=== PATIENT | female | born 1980 | race Caucasian/White ===

== ENCOUNTER 2016-04-07 20:18 | Inpatient (IN) | payer MEDICAID ==
[~2016-04-07] VITALS: Ht 162.6 cm; Wt 100.0 kg
[2016-04-07 21:33] LABS: BASOPHILS 0.1 % (0.0-2.0); EOSINOPHILS 0.1 % (0-7); HEMOGLOBIN 12.3 g/dL (12-16); IMMATURE GRANULOCYTES 0.3 % (0-5); LYMPHOCYTES 9.2 % (15-50); MCH 26.9 pg (26.0-34.0); MCHC 31.5 g/dL (31.0-37.0); MCV 85.2 fL (80.0-100.0); MEAN PLATELET VOLUME 9.8 fL (7.4-10.4); MONOCYTES 4.3 % (2-11); PLATELET COUNT 379 10x3/uL (130-400); RBC 4.58 10x6/uL (4.00-5.40); RDW 15.6 % (11.5-14.5); WBC 18.6 10x3/uL (4.8-10.8)
[2016-04-07 21:49] LABS: ALBUMIN 3.3 g/dL (3.4-5.0); ANION GAP 14.9 mmol/L (8-16); BILIRUBIN - TOTAL 0.7 mg/dL (0.2-1.3); CALCIUM 8.8 mg/dL (8.5-10.1); CARBON DIOXIDE 22.9 mmol/L (21.0-32.0); POTASSIUM - SERUM 3.8 mmol/L (3.5-5.1); PROTEIN - SERUM 7.1 g/dL (6.4-8.2)
[2016-04-07 22:11] LABS: APTT 30.5 SECONDS (22.8-39.4); INR 1.16 (0.85-1.17); PROTIME 14.7 SECONDS (11.6-15.0)
[2016-04-08] VITALS (7 sets, daily range): BP systolic 95–115; BP diastolic 45–70; Ht 162.6 cm; Wt 100.0 kg
--- NOTE | 2016-04-08 00:50 | NUR ---
REC'D PER STRETCHER FROM ER DEPT TO ROOM 2218 A 35 Y/O W/FE PER SERVICES DR. PRUITT WITH FX RT ANKLE. SOFT AIR PILLOW SPLINT TO FOOT. SALINE LOCK PATENT LEFT HAND. SITE CLEAR. INSTRUCTED PATENT ABOUT NPO STATUS AND ABSOLUTELY NO WALKING OR GETTING OUT OF BED. USE CALL LIGHT AND A BEDPAN WILL BE BROUGHT TO HER. ASSESSMENT PER ADMIT PACKET.
[2016-04-08] MEDS ORDERED: PROTONIX40 MG PO (01:18)
[2016-04-08] MEDS ORDERED: EFFEXOR25 MG PO (01:19)
[2016-04-08] MEDS ORDERED: VYVANSE60 MG PO (01:22)
[2016-04-08] MEDS ORDERED: KLONOPIN1 MG PO (01:23)
[2016-04-08] MEDS ORDERED: LOPRESSOR25 MG PO (01:24)
--- NOTE | 2016-04-08 02:00 | NUR ---
PT CONTINUES TO ASK FOR WATER AND ICE CHIPS RE-INFORCED NPO STATUS WITH POSSIBLE SURGERY IN AM.
--- NOTE | 2016-04-08 04:30 | NUR ---
NURSE FOUND PATIENT OUT OF BED HOPPING ON ONE FOOT TO THE BATHROOM. INSTRUCTIONS RE-INFORCED TO NOT GET OUT OF BED NO WEIGHT BEARING. PT VERBALIZED UNDERSTANDING BUT STATED SHE FORGOT.
--- NOTE | 2016-04-08 06:06 | NUR ---
PT REMAINS NPO AT THIS TIME FOR POSSIBLE SURGERY.
--- NOTE | 2016-04-08 07:30 | NUR ---
REPORT RECEIVED FROM BONING ROOM WORKER NURSE. CALL LIGHT IN REACH.
--- NOTE | 2016-04-08 09:21 | NUR ---
ASSESSMENT COMPLETED. CONSENT FORMS SIGNED AND WITNESSED. [facility] PLACED IN TO COLLECT URINE SAMPLE FOR UA AND DRUG SCREEN. NPO. PASSWORD OBTAINED. CALL LIGHT IN REACH. WILL CONTINUE WITH PLAN OF CARE.
--- NOTE | 2016-04-08 10:57 | NUR ---
ANCEF IVPB PER ORDER. ASSISTED PATIENT TO BR AND BACK TO BED. OBTAINED 300 CC DARK COLORED YELLOW. SAMPLE SENT TO LAB FOR TESTS. WAITING ON PREOP ORDERS TO PATIENT CAN HAVE HER MEDS BEFORE SURGERY.
--- NOTE | 2016-04-08 11:05 | NUR ---
SOMEONE FROM OR CALLED FOR ME TO PREOP PATIENT. I INFORMED HER THAT THERE WERE NO PREOP ORDERS PUT IN. SHE ASKED IF I HAD CALLED TO GET A TELEPHONE ORDER AND I TOLD HER THAT WE ARE NOT ALLOWED TO PUT IN PREOP ORDERS FOR THE ANESTHESIOLOGIST PER DR. JOY BECAUSE THEY WANT TO PUT THEM IN THEMSELVES. SHE VERBALIZED UNDERSTANDING.
[2016-04-08 11:27] LABS: UDS - AMPHET POSITIVE QUAL (NEGATIVE); UDS - BARB NEGATIVE QUAL (NEGATIVE); UDS - BENZO POSITIVE QUAL (NEGATIVE); UDS - COCAINE NEGATIVE QUAL (NEGATIVE); UDS - METH NEGATIVE QUAL (NEGATIVE); UDS - OPIATE POSITIVE QUAL (NEGATIVE); UDS - PCP NEGATIVE QUAL (NEGATIVE); UDS - THC NEGATIVE QUAL (NEGATIVE)
[2016-04-08 11:28] LABS: APPEARANCE SLT CLOUDY (CLEAR); BACTERIA MODERATE /hpf (NONE SEEN); BILIRUBIN NEGATIVE (NEGATIVE); COLOR DK YELLOW (YELLOW); GLUCOSE NEGATIVE (NEGATIVE); KETONE SMALL mg/dL (NEGATIVE); LEUKOCYTE ESTERASE TRACE (NEGATIVE); MUCUS >1+ /lpf (NONE SEEN); NITRITE POSITIVE (NEGATIVE); PROTEIN TRACE mg/dL (NEGATIVE); RED CELLS - URINE 0-5 /hpf (0-5); SPECIFIC GRAVITY 1.025 (1.005-1.020); UROBILINOGEN NORMAL (NORMAL)
--- NOTE | 2016-04-08 11:40 | NUR ---
PREOP MEDS ADMINISTERED PER ORDER. TO OR VIA BED.
--- NOTE | 2016-04-08 12:39 | NUR ---
1140 PATIENT NOTED TO HAVING DRIED BLOOD SCRATCH ON LEFT EYELID, AND BRUISED SWOLLEN WITH SOME ULCERATIONS ON RIGHT ANKLE, JOSEP.
--- NOTE | 2016-04-08 13:04 | NUR ---
THE PATIENT IS COMPLAINING OF PAIN BUT IS SLURRING HER SPEECH AND HAD TO BE PLACED ON OXYGEN VIA NC TO MAINTAIN AN O2 SAT GREATER THEN 94%
--- NOTE | 2016-04-08 13:10 | NUR ---
RECEIVED BACK TO ROOM 2218 VIA BED. CALL LIGHT IN REACH.
--- NOTE | 2016-04-08 13:34 | NUR ---
PATIENT BACK TO ROOM AT THIS TIME WITH NO COMPLAINTS. VS STABLE, IV INTACT. O2 ON 3 LNC. CALL LIGHT WITHIN REACH.
--- NOTE | 2016-04-08 15:50 | NUR ---
RESTING WITH EYES CLOSED. RESP EVEN AND UNLABORED. CALL LIGHT IN REACH. ORDER FOR FOREST PATHOLOGY ASSOCIATE PROFESSOR BUT PATIENT IS TOO DROWSY AT THIS TIME. WILL USE NURSING JUDGEMENT. OTHER PAIN MEDS ORDERED.
--- NOTE | 2016-04-08 17:41 | NUR ---
PERCOCET PO PER C/O PAIN OF 9 TO RIGHT ANKLE. FAMILY IN ROOM. CALL LIGHT IN REACH.
--- NOTE | 2016-04-08 17:41 | NUR ---
RESTING WITH EYES CLOSED. RESP EVEN AND UNLABORED. CALL LIGHT IN REACH. ORDER FOR CERTIFIED BREASTFEEDING EDUCATOR BUT PATIENT IS TOO DROWSY AT THIS TIME. WILL USE NURSING JUDGEMENT. OTHER PAIN MEDS ORDERED.
--- NOTE | 2016-04-08 18:04 | NUR ---
NO CHANGES IN INITIAL ASSESSMENT. SCD TO LLE. FAMILY IN ROOM. WILL CONTINUE WITH PLAN OF CARE.
--- NOTE | 2016-04-08 20:00 | NUR ---
ASSESSMENT PER FLOWSHEET. FAMILY MEMBERS AT BEDSIDE. CITLALLI WRAP CAST TO RT FOOT INTACT WITH MODERATE AMOUNT PINK DRAINAGE RT FOOT ELEVATED ON PILLOWS. PLACED ICE BAGS X2 TO EITHER SIDE OF RT FOOT. IV PATENT LEFT WRIST OF LR INFUSING AT 50CC'S/HR SITE CLEAR. PT DROWSY BUT AROUSEABLE.
--- NOTE | 2016-04-08 22:30 | NUR ---
PLACED ON BEDPAN VOIDED 100CC'S FANY COLORED URINE.
--- NOTE | 2016-04-08 23:35 | NUR ---
REQUESTING PAIN MED. PERCOCET 10 TAB ONE PO GIVEN FOR PAIN CONTROL.
[2016-04-09] VITALS: BP 114/66
--- NOTE | 2016-04-09 01:31 | NUR ---
EYES CLOSED RESPIRATIONS WITH EASE AND UNLABORED.
[2016-04-09 03:29] VITALS: BP 123/63
--- NOTE | 2016-04-09 06:07 | NUR ---
AWAKE MEDS GIVEN PER MAR. HAS VOIDED X2 ON BEDPAN.
--- NOTE | 2016-04-09 07:15 | NUR ---
REPORT RECEIVED FROM AUTOMOTIVE GLAZIER NURSE. CALL LIGHT IN REACH.
[2016-04-09 07:36] LABS: HEMATOCRIT 33.4 % (36.0-48.0); HEMOGLOBIN 10.2 g/dL (12-16)
--- NOTE | 2016-04-09 08:05 | NUR ---
PATIENT RESTING QUIETLY WITH EYES CLOSED. NO SIGNS OF DISTRESS NOTED. BED IN LOWEST POSITION, CALL LIGHT IN REACH. BED RAILS UP X'S 2.
[2016-04-09 08:22] VITALS: BP 157/85
--- NOTE | 2016-04-09 09:42 | NUR ---
ASSESSMENT COMPLETED. PERCOCET PO WITH AM MEDS ADMINISTERED. PATIENT IS MORE ALERT TODAY SO DILAUDID VICE PRESIDENT FOR PHILANTHROPY INITIATED PER MD ORDER. ICE PACK FILLED AND PLACED TO RIGHT ANKLE. LINENS CHANGED PER DRY GOODS INSPECTOR. ON AND OFF BEDPAN PER DRY GOODS INSPECTOR. CALL LIGHT IN REACH. SCD TO LLE. VISITOR IN ROOM. WILL CONTINUE WITH PLAN OF CARE.
--- NOTE | 2016-04-09 11:25 | NUR ---
IN BED WITH EYES CLOSED. RESP EVEN AND UNLABORED. CALL LIGHT IN REACH.
[2016-04-09 12:23] VITALS: BP 122/72
--- NOTE | 2016-04-09 13:07 | NUR ---
CRYING HYSTERICALLY. C/O PAIN OF 10. PERCOCET PO. ICE PACK TO RIGHT ANKLE. CALL LIGHT IN REACH.
--- NOTE | 2016-04-09 15:31 | NUR ---
STILL STATES HER PAIN IS A 9. BLEACHER PULP HAS ONLY BEEN PUSHED TWICE. EXPLAINED TO PATIENT THAT SHE HAS TO CONTINUE TO PUSH IT WHENEVER SHE IS IN PAIN SO WE CAN STAY AHEAD OF THE PAIN. VERBALIZED UNDERSTANDING.
[2016-04-09 16:38] VITALS: BP 131/73
--- NOTE | 2016-04-09 16:51 | NUR ---
BENADRYL PO PER C/O ITCHING TO RLE UNDER DRSG. LYNETTE CAOPB. CALL LIGHT IN REACH.
--- NOTE | 2016-04-09 18:29 | NUR ---
NO CHANGES IN INITIAL ASSESSMENT. SCDs TO LLE. CALL LIGHT IN REACH. WILL CONTINUE WITH PLAN OF CARE.
--- NOTE | 2016-04-09 20:00 | NUR ---
ASSESSMENT PER FLOWSHEET. RT FOOT CAST IN PLACE ELEVATED ON PILLOW. IV PATENT LEFT WRIST OF 1/2NS AT 50CC'S/HR SITE CLEAR. SUPERVISOR SPECIALTY PLANT OF DILAUDID IN USE WITH SETTINGS AT 0.2MG Q10MIN W/4MG Q4H L/O. PLACED ON BEDPAN VOIDS. PATIENT PUTS BEDPAN OF FLOOR AFTER USE. SR UP X2 CALL LIGHT WITHIN REACH.
[2016-04-09 21:00] VITALS: BP 138/78
--- NOTE | 2016-04-09 21:30 | NUR ---
MEDS GIVEN PER MAR.
--- NOTE | 2016-04-10 00:59 | NUR ---
AWAKE TALKING ON PHONE TO MALE FRIEND. DRINKING A SODA. DENIES NEEDS.
[2016-04-10 02:00] VITALS: BP 137/68
[2016-04-10 04:57] LABS: HEMATOCRIT 31.3 % (36.0-48.0); HEMOGLOBIN 9.9 g/dL (12-16)
[2016-04-10] MEDS ORDERED: PERCOCET 10/3251 TA1 PO (06:37)
--- NOTE | 2016-04-10 06:59 | NUR ---
DR. PRUITT HERE ORDERS REC'D.
--- NOTE | 2016-04-10 08:26 | NUR ---
AWAKE AND ALERT. ORIENTED X3. NO C/O AT THIS TIME. LUNGS ARE CLEAR BILATERALLY, NO COUGH NOTED. SKIN IS INTACT WITHOUT REDNESS EXCEPT INCISION TO RIGHT LE WHICH HAS A DRY INTACT DRESSING/CAST IN PLACE. NEURO CHECKS WNL. IV TO LEFT FOREARM IS PATENT WITHOUT REDNESS AT INSERTION SITE. REPORTS GOOD PAIN MANAGEMENT WITH USE OF TEACHERS AIDE. DENIES NEEDS.
[2016-04-10 08:30] VITALS: BP 147/75
--- NOTE | 2016-04-10 08:35 | NUR ---
Patient Name: KADEN BUENROSTRO Admission Status: ER Accout number: [id number] Admission Date: 04-09-2016 : 1980 Admission Diagnosis: Attending: VILMA Current LOS: 1 Anticipated DC Date: Planned Disposition: Primary Insurance: [place] [employer] [facility] Discharge Planning Comments: CM MET WITH PATIENT REGARDING D/C NEEDS AND PLANS. PATIENT STATED HER FRIEND WILL BE TRANSPORTING HER HOME AT DISCHARGE. PATIENT STATED SHE IS INDEPENDENT WITH HER CARE AND HAS TWO SETS OF CRUTCHES AT HOME. PATIENTS PCP IS DR. QUAN AND USES [facility] [address] FOR HER PHARMACY. PATIENT STATED SHE HAS NO NEEDS FOR DISCHARGE. CM WILL CONTINUE TO FOLLOW PATIENT WITH D/C NEEDS AND PLANS. PATIENT IS TO DISCHARGE TODAY HOME. PCP DR[facility] KADEEM [facility]OLA [facility] [phone] [phone] Casey Saw Operator: Melany Camara Is the patient Alert and Oriented? Yes 0 * How many steps to enter\exit or inside your home? 3 W/RAILS 0 * PCP DR. QUAN 0 * [facility] [address] [phone] * Preadmission Environment Home with Family 0 * ADLs Independent 0 * Equipment Crutch 0 * List name and contact numbers for known caregivers / representatives who currently or will assist patient after discharge: BRENT PEREZ) [phone] * Community resources currently utilized None 0 * Additional services required to return to the preadmission environment? Yes 0 * Can the patient safely return to the preadmission environment? Yes 0 * Has this patient been hospitalized within the prior 30 days at any hospital? No 0 Grand Total: 0
--- NOTE | 2016-04-10 09:00 | NUR ---
AMBULATED IN HALLWAY WITH PT. DID WELL WITH WALKER. NOT WELL WITH CRUTCHES.
--- NOTE | 2016-04-10 10:15 | NUR ---
DISCHARGED TO HOME WITH FAMILY AMBULATORY. DRESSING TO RIGHT FOOT HAS DRIED DRAINAGE NOTED. REENFORCED AT THIS TIME. DISCHARGE INSTRUCTIONS GIVEN BOTH VERBALLY AND WRITTEN. ALL QUESTIONS ANSWERED. PATIENT VERBALIZED UNDERSTANDING OF SAME. NEEDED PRESCRIPTIONS GIVEN TO PATIENT. IV TO LEFT FOREARM D/C WITH CATHETER INTACT.
--- NOTE | 2016-04-24 18:23 | OP ---
PATIENT NAME: KADEN BUENROSTRO MEDICAL RECORD: [id number] :80 LOCATION:[id number] ADMISSION DATE:04/09/16 SURGEON: KERRY PRUITT MD DATE OF OPERATION: 04/08/2016 PREOPERATIVE DIAGNOSIS: Bimalleolar ankle fracture of the right ankle. POSTOPERATIVE DIAGNOSIS: Bimalleolar ankle fracture of the right ankle. PROCEDURE: Open reduction and internal fixation of right bimalleolar ankle fracture. SURGEON: Kerry Pruitt MD ANESTHESIA: General. INTRAOPERATIVE COMPLICATIONS: None. SUMMARY OF PATHOLOGIC FINDINGS: The patient had displaced bimalleolar ankle fracture consistent with the preoperative diagnosis. OPERATIVE SUMMARY IN DETAIL: After obtaining the appropriate preoperative orthopedic surgery consent as well as anesthetic consultation, evaluation and clearance, the patient was brought to the operating room and placed on the operating table in supine position. After adequate general laryngeal mask airway was administered, tourniquet was placed about the proximal aspect of the right lower extremity. Right lower extremity was then prepped and draped in routine sterile fashion. The right leg was elevated and exsanguinated, tourniquet was inflated to 350 mmHg. Incision was made in line with the lateral malleolus, taken down to the level of the fracture, which was identified, cleared of all fracture hematoma and reduced. The plate was applied and serial and sequential drill and fill with a combination of compression and locking screws were utilized to create an anatomic fixation of the lateral malleolus. Medial malleolar side was then opened up. The small inferior ____ fragment was pinned provisionally with 2 cannulated guidewires from the 4.0 screws. Two 4.0 screw shafts were placed through the fragments, resulting in overall stabilization of the medial aspect of the ankle. Radiographs were taken and submitted for final review. Wounds were copiously irrigated and closed with #1 and 2-0 Prolene followed by elvie. Sterile dressings were applied. Tourniquet was deflated. The patient was awakened, taken to recovery room in stable condition after a L&U splint was applied. All final needle and sponge counts were correct. TRANSINT:[id number] Voice Confirmation ID: [id number] DOCUMENT ID: [id number] KERRY PRUITT MD at 3584 CC: [id number] DICTATION DATE: 04/08/16 1251 CHAPTER RELATIONS ADMINISTRATOR: 04/08/16 1309 DIS IN 04/10/16 [place] [id number] [facility], [facility]901
== END 2016-04-10 10:15 | disposition home or self-care (01) | DRG 494 ==
LOC: D.ER 20:18 → D.MS 23:16 → OBSVTIME 04-08 16:00 → D.MS 04-09 15:46
PROVIDERS: Emergency Medicine; Physician Assistant Medical; ADMIT Orthopaedic Surgery
PROC: 0QSG04Z Reposition Right Tibia with Internal Fixation Device, Open Approach (ICD-10-PCS; 2016-04-08)
PROC: 0QSJ04Z Reposition Right Fibula with Internal Fixation Device, Open Approach (ICD-10-PCS; principal; 2016-04-08 11:10)
DX: S82.841A Displaced bimalleolar fracture of right lower leg, initial encounter for closed fracture (principal); W17.89XA Other fall from one level to another, initial encounter; K21.9 Gastro-esophageal reflux disease without esophagitis; Z72.0 Tobacco use

== ENCOUNTER 2019-05-29 06:55 | Day surgery (SDC) | payer OTHER ==
[~2019-05-29] VITALS: Ht 162.6 cm; Wt 117.9 kg
[~2019-05-29 06:55] MED LIST: EFFEXOR25 MG PO; KLONOPIN1 MG PO; LOPRESSOR25 MG PO; PERCOCET 10/3251 TA1 PO; PROTONIX40 MG PO; VYVANSE60 MG PO
[2019-05-29 07:53] LABS: HEMATOCRIT 39.3 % (36.0-48.0); HEMOGLOBIN 12.5 g/dL (12-16); MCH 25.4 pg (26.0-34.0); MCHC 31.8 g/dL (31.0-37.0); MCV 79.7 fL (80.0-100.0); MEAN PLATELET VOLUME 9.7 fL (7.4-10.4); RBC 4.93 10x6/uL (4.00-5.40); RDW 15.4 % (11.5-14.5); WBC 7.5 10x3/uL (4.8-10.8)
[2019-05-29 08:16] VITALS: BP 123/68; Ht 162.6 cm; Wt 117.9 kg
[2019-05-29] MEDS ORDERED: HYDROCODON-ACE1 EA10 PO (09:45)
--- NOTE | 2019-06-02 08:42 | OP ---
PATIENT NAME: KADEN BUENROSTRO MEDICAL RECORD: [id number] :80 LOCATION:[facility] ADMISSION DATE: SURGEON: KERRY PRUITT MD DATE OF OPERATION: 05/29/2019 PREOPERATIVE DIAGNOSIS: Painful hardware of the right ankle medial malleolus. POSTOPERATIVE DIAGNOSIS: Painful hardware of the right ankle medial malleolus. PROCEDURE: Removal of painful hardware of the right medial malleolus. SURGEON: Kerry Pruitt MD [employer] ADMINISTRATOR: JULIANA Solis INTRAOPERATIVE COMPLICATIONS: None. SUMMARY OF PATHOLOGIC FINDINGS: While the bone had healed, the screws had been painful. Based on physical examination as well as other nonsurgical indicators, decision was made to proceed with hardware removal of the medial side only. These were double compression screws that were removed up with fluoroscopic guidance. OPERATIVE SUMMARY IN DETAIL: After obtaining the appropriate preoperative orthopedic surgery consent as well as anesthetic consultation, evaluation and clearance, the patient was brought to the operating room and placed on the operating table in a supine position. After general laryngeal mask was administered, tourniquet was placed in the proximal aspect of the right lower extremity. Right lower extremity was then prepped and draped in routine sterile fashion. The leg was elevated and exsanguinated, tourniquet was inflated to 350 mmHg. At this point, the appropriate preoperative timeout was taken and agreed upon by all given the patient's unique identifiers. Under fluoroscopic guidance, incision was made along the medial malleolus, taken down and the deltoid ligament was spread, but not detached. The posterior screw was found first and it was removed serial and sequentially under fluoroscopic guidance. This was followed by discovery of the anterior screw, which was also found, serial and sequential removed. Final radiographs were taken and submitted for final radiologist review. The wound was then copiously irrigated and closed by Lars Bryan to include #1 Vicryl, 2-0 Vicryl and 4-0 Prolene in running fashion. Sterile dressings were applied. Tourniquet was deflated. The patient was awakened and taken to the recovery room in stable condition. All final needle and sponge counts were correct. TRANSINT:[id number] Voice Confirmation ID: [id number] DOCUMENT ID: [id number] KERRY PRUITT MD at 0842 CC: [id number] DICTATION DATE: 05/30/1931 ACCOUNTS PAYABLE COORDINATOR: 05/30/19 1200 [facility] 05/29/19 [place] [id number] [facility] [place] [address]
== END 2019-05-29 11:40 | disposition home or self-care (01) ==
LOC: D.OPS 06:55 → D.PAN 14:15
PROVIDERS: Anesthesiology; ATTEND Orthopaedic Surgery
DX: M25.571 Pain in right ankle and joints of right foot (principal); T84.9XXA Unspecified complication of internal orthopedic prosthetic device, implant and graft, initial encounter